=== PATIENT | male | born 1955 | race Caucasian/White ===

== ENCOUNTER 2017-11-04 05:15 | Day surgery (SDC) | payer OTHER ==
[~2017-11-04 05:15] MED LIST: LIPITOR20 MG PO; VASOTEC20 M1 PO
[2017-11-04] MEDS ORDERED: PERCOCET 5-3251 EACH PO (09:38)
[2017-11-04] MEDS ORDERED: RECTICARE30 GM TOP (09:38)
== END 2017-11-04 13:25 | disposition home or self-care (01) ==
LOC: CIR.AMB 05:15
DX: K64.3 Fourth degree hemorrhoids (principal); K64.4 Residual hemorrhoidal skin tags